=== PATIENT | female | born 1985 | race Caucasian/White ===

== ENCOUNTER 2016-08-13 17:59 | Emergency (ER) | payer MEDICAID, OTHER ==
[~2016-08-13] VITALS: Ht 157.5 cm; Wt 64.1 kg
[2016-08-13 18:03] VITALS: Ht 157.5 cm; Wt 64.1 kg
[2016-08-13] MEDS ORDERED: SOD CHLORIDE 0.9% 1,000 ML IV STA (19:31)
[2016-08-13 19:59] LABS: URINE BLOOD (Dip) POC 2+ (NEGATIVE)
[2016-08-13] MEDS ORDERED: ACETAMINOPHEN 325 MG TAB PO ONE (20:00)
[2016-08-13 20:05] LABS: ADD SCAN DIFF NO
[2016-08-13 20:14] LABS: ABNORMAL IP MESSAGE 1; BASOPHILS % 0.3 % (0.0-2.0); EOSINOPHILS % 0.1 % (0.0-7.0); HEMATOCRIT 38.1 % (37.0-47.0); HEMOGLOBIN 12.5 g/dl (12.0-16.0); LYMPHOCYTES # 2.2 10^3/ul (0.8-2.9); LYMPHOCYTES % 18.4 % (15.0-51.0); MEAN CORPUSCULAR HEMOGLOBIN 30.9 pg (29.0-33.0); MEAN CORPUSCULAR HGB CONC 32.8 g/dl (32.0-37.0); MEAN CORPUSCULAR VOLUME 94.3 fl (82.0-101.0); MEAN PLATELET VOLUME 10.1 fl (7.4-10.4); MONOCYTE # 1.9 10^3/ul (0.3-0.9); MONOCYTES % 15.8 % (0.0-11.0); NEUTROPHIL # 7.7 10^3/ul (1.6-7.5); PLATELET COUNT 190 10^3/UL (140-415); RED BLOOD COUNT 4.04 10^6/ul (4.20-5.40); RED CELL DISTRIBUTION WIDTH 12.1 % (11.5-14.5); WHITE BLOOD COUNT 11.8 10^3/ul (4.8-10.8)
[2016-08-13 20:22] LABS: ADD UMIC YES; URINE BILIRUBIN (Dip) NEGATIVE (NEGATIVE); URINE BLOOD (Dip) 3+ (NEGATIVE); URINE COLOR LT. YELLOW (YELLOW); URINE GLUCOSE (Dip) NEGATIVE (NEGATIVE); URINE KETONES (Dip) NEGATIVE (NEGATIVE); URINE LEUKOCYTE ESTERASE (Dip) TRACE (NEGATIVE); URINE NITRITE (Dip) NEGATIVE (NEGATIVE); URINE TOTAL PROTEIN (Dip) 2+ (NEGATIVE); URINE UROBILINOGEN (Dip) 2.0 E.U./dL (0.1-1.0)
[2016-08-13 20:24] LABS: ALBUMIN 4.2 g/dl (3.3-4.9)
[2016-08-13 20:25] LABS: POTASSIUM 3.9 mmol/L (3.5-5.1)
[2016-08-13 20:26] LABS: CREATININE 0.73 mg/dl (0.44-1.00)
[2016-08-13 20:27] LABS: ALBUMIN/GLOBULIN RATIO 1.02; BILIRUBIN,INDIRECT 0.8 mg/dl (0-1.1); BILIRUBIN,TOTAL 0.8 mg/dl (0.2-1.3); TOTAL PROTEIN 8.3 g/dl (6.1-8.1)
[2016-08-13 20:28] LABS: CALCIUM 9.5 mg/dl (8.4-10.2)
[2016-08-13 20:35] LABS: BACTERIA,URINE FEW; SQUAMOUS EPITHELIAL CELL,UR MODERATE; URINE RBCS 25-50 /HPF (0)
[2016-08-13] MEDS ORDERED: IBUP-1542 PO (20:38)
[2016-08-13] MEDS ORDERED: CIPR500T4 PO (20:38)
--- NOTE | 2016-08-13 20:38 | RADRPT ---
PROCEDURE: Right upper quadrant abdominal ultrasound. CLINICAL INDICATION: Abdominal pain TECHNIQUE: Mancia scale and color doppler ultrasound images of the right upper quadrant. COMPARISON: None FINDINGS: Pancreas: Visualized portions appear of normal echogenicity, no focal lesions. Liver: Morphology: The right lobe of the liver is elongated measuring up to 16.8 cm which may reflect Shiela del's lobe configuration. No evidence of contour nodularity. Echogenicity: Normal. Focal lesions: None. Main portal vein: Patent with hepatopetal flow. Biliary System: Normal appearing gallbladder wall. No gallstones seen. No intrahepatic biliary dilatation. Common bile duct measures 1.2 mm in maximal dimension. Kidneys: Right 10.8 cm in length. Right renal cortical thickness is preserved. Normal echogenicity. No hydronephrosis. No renal calculi. No focal lesions. No free fluid identified. IMPRESSION: Normal gallbladder without gallstones. Normal examination. RPTAT: AADD .Dariel Crow MD, Date Time Electronically viewed and signed by .Dariel Crow MD, on 08/13/2016 20:37 .B/
--- NOTE | 2016-08-13 20:41 | ERD ---
ER Documentation Chief Complaint Date/Time DATE: 08/13/16 TIME: 20:39 Chief Complaint DYSURIA X 1 MOS INTERMITTENT HPI 30-year-old female claims of intermittent dysuria worsening over the last week. She has had a fever triage is a fever may have started 2 days ago. Denies vomiting, cough, sore throat, diarrhea, abdominal pain. She also complains of some mild right upper quadrant abdominal pain. She denies any flank pain. She denies any vaginal discharge or bleeding ROS All systems reviewed and are negative except as per history of present illness. Medications Home Meds Active Scripts Ibuprofen* (Motrin*) 600 Mg Tab, 600 MG PO Q6, #15 TAB Prov:IZA ROSE MD 08/13/16 Ciprofloxacin Hcl* (Ciprofloxacin Hcl*) 500 Mg Tablet, 500 MG PO BID for 7 Days , TAB Prov:IZA ROSE MD 08/13/16 PMhx/Soc Medical and Surgical Hx: pt denies Medical Hx, pt denies Surgical Hx Hx Alcohol Use: No Hx Substance Use: No Hx Tobacco Use: No Smoking Status: Never smoker Physical Exam Vitals Vital Signs Date Time Temp Pulse Resp B/P Pulse Ox O2 Delivery O2 Flow Rate FiO2 08/13/16 18:03 101.1 110 20 109/71 99 Physical Exam Const: [] Alert, [id number] per Head: Atraumatic Eyes: Normal Conjunctiva ENT: Normal External Ears, Nose and Mouth. Neck: Full range of motion..~ No meningismus. Resp: Clear to auscultation bilaterally Cardio: Regular rate and rhythm, no murmurs Abd: Soft, minimal right upper quadrant tenderness without rebound and no tenderness at McBurney's point, non distended. Normal bowel sounds Skin: No petechiae or rashes Back: No midline or flank tenderness Ext: No cyanosis, or edema Neur: Awake and alert Psych: Normal Mood and Affect Result Diagram: 08/13/16194908/13/161949 Results 24 hrs Laboratory Tests Test 08/13/16 19:50 08/13/16 20:00 White Blood Count 11.810^3/ul Red Blood Count 4.0410^6/ul Hemoglobin 12.5g/dl Hematocrit 38.1% Mean Corpuscular Volume 94.3fl Mean Corpuscular Hemoglobin 30.9pg Mean Corpuscular Hemoglobin Concent 32.8g/dl Red Cell Distribution Width 12.1% Platelet Count 21076^3/UL Mean Platelet Volume 10.1fl Neutrophils % 65.0% Lymphocytes % 18.4% Monocytes % 15.8% Eosinophils % 0.1% Basophils % 0.3% Nucleated Red Blood Cells % 0.0/100WBC Neutrophils # 7.710^3/ul Lymphocytes # 2.210^3/ul Monocytes # 1.910^3/ul Eosinophils # 0.010^3/ul Basophils # 0.010^3/ul Nucleated Red Blood Cells # 0.010^3/ul Urine Color LT. YELLOW Urine Clarity CLEAR Urine pH 8.5 Urine Specific [place] 1.015 Urine Ketones NEGATIVE Urine Nitrite NEGATIVE Urine Bilirubin NEGATIVE Urine Urobilinogen 2.0 E.U./dL Urine Leukocyte Esterase TRACE Urine Microscopic RBC 25-50/HPF Urine Microscopic WBC 5-10/HPF Urine Squamous Epithelial Cells MODERATE Urine Bacteria FEW Urine Hemoglobin 3+ Urine Glucose NEGATIVE% Urine Total Protein 2+ Sodium Level 140mmol/L Potassium Level 3.9mmol/L Chloride Level 101mmol/L Carbon Dioxide Level 25mmol/L Anion Gap 18 Blood Urea Nitrogen 8mg/dl Creatinine 0.73mg/dl Glucose Level 138mg/dl Calcium Level 9.5mg/dl Total Bilirubin 0.8mg/dl Direct Bilirubin 0.00mg/dl Indirect Bilirubin 0.8mg/dl Aspartate Amino Transf (AST/SGOT) 37IU/L Alanine Aminotransferase (ALT/SGPT) 55IU/L Alkaline Phosphatase 91IU/L Total Protein 8.3g/dl Albumin 4.2g/dl Globulin 4.10g/dl Albumin/Globulin Ratio 1.02 Lipase 27U/L Bedside Urine pH (LAB) 8.5 Bedside Urine Protein (LAB) 2+ Bedside Urine Glucose (UA) Negative Bedside Urine Ketones (LAB) Negative Bedside Urine Blood 2+ Bedside Urine Nitrite (LAB) Negative Bedside Urine Leukocyte Esterase (L Trace Current Medications Medications (Trade) Dose Ordered Sig/Summer Route PRN Reason Start Time Stop Time Status Last Admin Dose Admin Sodium Chloride (NS) 1,000 ml @ 1,000 mls/hr Q1H STAT IV 08/13/16 19:31 08/13/16 20:30 DC 08/13/16 19:55 Acetaminophen 650 mg 650 mg ONCE ONCE PO 08/13/16 20:00 08/13/16 20:01 DC 08/13/16 19:55 Ceftriaxone Sodium (Rocephin) 50 ml @ 100 mls/hr ONCE ONCE IVPB 08/13/16 21:00 08/13/16 21:29 UNV Procedures/MDM CBC shows white blood cell 11.8. CMP shows no acute abnormalities. Urine shows positive leukocytes and was sent for culture. HCG is negative. Patient was given 1 L normal saline IV, Tylenol for fever Rocephin 1 g IV. Right upper quadrant ultrasound was normal according the radiologist. Patient presents with febrile illness with worsening dysuria last 2 weeks. Signs and symptoms suggest likely UTI or mild pyelonephritis. Associated symptoms of distress, sepsis, pneumonia, appendicitis, hepatobiliary disease. She will treated with Cipro and Tylenol instructions for clear fluids at home. Patient to recheck the next day for vomitus by treatment, worsening pain, blood , new worsening symptoms with primary care doctor this week. The patient was stable with no new complaints during the ER course. Clinically, there is no current evidence to suggest meningitis, sepsis, acute abdomen, pneumonia, acute coronary syndrome, pulmonary embolism, or any other emergent condition appearing to require further evaluation or hospitalization. The patient should certainly return for any new or worsening symptoms per the aftercare instructions. They should otherwise follow-up with her primary care doctor for reevaluation this week. Departure Diagnosis: Primary Impression: Fever Fever type: unspecified Qualified Code: R50.9 - Fever, unspecified fever cause Additional Impression: Dysuria Condition: Stable Patient Instructions: Understanding Urinary Tract Infections (UTIs), Fever Control (Adult) Additional Instructions: BREANA BRO. Cheque otro vez con pereyra doctor primario en el proximo solomon or regresa para mas o nueva simptomas. IZA ROSE MD August 13, 2016 20:41
[2016-08-13] MEDS ORDERED: CEFTRIAXONE 1 GM/50 ML (PMX) 50 ML IVPB ONE (21:00)
[2016-08-13 21:40] VITALS: BP 91/58; PULSE 86; RESP 17; TEMP 98.9
== END 2016-08-13 21:41 | disposition home or self-care (01) ==
LOC: FTE 17:59
DX: R50.9 Fever, unspecified (principal)
CPT/HCPCS: 36415; 76705; 80053; 81001; 83690; 85025; 96361; 96374; J0696; J7030; Z7502; Z7610; 81003